=== PATIENT | female | born 1975 | race Caucasian/White ===

== ENCOUNTER 2017-01-23 21:07 | Inpatient (IN) | payer MEDICAID ==
--- NOTE | ~2017-01-23 | PN ---
Unit #: [id number] #: [id number] Patient: ALBERT LOPEZ [id number] [facility] [address] [place] [address] [id number] MR#: [id number] NAME: ALBERT LOPEZ ROOM: 12 Age: 41 Sex: F Admission Date: 01/24/2017 : 1975 Attending Physician: Thee Rooney M.D. Admitting Physician: Thee Rooney M.D. Primary Care Physician: Primary Care Physician Nika VALLES PROGRESS NOTES DATE 01/26/2017 DISCUSSION The patient is abed today. Her scheduled discharge yesterday had to be discontinued after the patient had voiced suicidal ideation prior to leaving the hospital. She is now on room lockout precautions to ensure her safety. She provides little in the way of useful information during today's attempted interview. Dictated by... Thee Rooney M.D. CB/gabriella TD: 01/26/2017 21:46 JOB #: [id number] [facility] PROGRESS NOTES Page 1 of 1 X Thee Rooney MD X PROGRESS NOTE
--- NOTE | ~2017-01-23 | PN ---
Unit #: [id number] #: [id number] Patient: ALBERT LOPEZ [id number] [facility] [address] [place] [address] [id number] MR#: [id number] NAME: ALBERT LOPEZ ROOM: 12 Age: 41 Sex: F Admission Date: 01/24/2017 : 1975 Attending Physician: Thee Rooney M.D. Admitting Physician: Thee Rooney M.D. Primary Care Physician: Primary Care Physician Nika VALLES PROGRESS NOTES DATE 01/29/2017 DISCUSSION The patient is gently but firmly confronted today regarding her failure to attend an on unit therapeutic activity. The patient states that she wishes to stay here for "drug rehab". I have explained to the patient that this facility does not provide that level of care and I have asked the patient's manager social work to see her regarding her post discharge options but have told the patient to expect a.m. discharge. She is currently denying suicidal ideation. Dictated by... Thee Rooney M.D. CB/dong TD: 01/30/2017 02:42 JOB #: [id number] [facility] PROGRESS NOTES Page 1 of 1 X Thee Rooney MD PROGRESS NOTE
--- NOTE | ~2017-01-23 | HP ---
Unit #: [id number] #: [id number] Patient: ALBERT LOPEZ [id number] [place] [address] [id number] MR#: [id number] NAME: ALBERT LOPEZ ROOM: P183 Age: 41 Sex: F Admission Date: 01/24/2017 : 1975 Attending Physician: Thee Rooney M.D. Admitting Physician: Thee Rooney M.D. Primary Care Physician: Primary Care Physician No HISTORY AND PHYSICAL HISTORY OF PRESENT ILLNESS Albert is a 41 year old admitted to [facility] because of her drug use. She smokes heroin. She also reports that she is depressed and wants to hurt herself. PAST MEDICAL HISTORY Long history of illicit substance abuse to include: 1. methamphetamine 2. COPD PAST SURGICAL HISTORY 1. Hysterectomy 2. section x1 ALLERGIES Keflex, penicillin, sulfa, latex. SOCIAL HISTORY Smokes greater than one pack per day. Drinks alcohol on occasion. Admits to history of illicit drug use to include smoking methamphetamine. FAMILY HISTORY Medically noncontributory. REVIEW OF SYSTEMS CONSTITUTIONAL: No fever or chills. HEENT: Denies any sore throat, ear pain or runny nose. CARDIOVASCULAR: Denies chest pain, irregular heart rhythm or palpitations. CHEST: Denies shortness of breath or cough. No hemoptysis. GASTROINTESTINAL: Denies nausea, vomiting, diarrhea or chronic constipation. ENDOCRINE: Denies history of increased thirst or urination. No recent significant weight loss or gain. GENITOURINARY: Denies dysuria, frequency, or hematuria. SKIN: Denies any rashes. HEMATOLOGIC: Denies history of increased bleeding or bruising. MUSCULOSKELETAL: Denies any hot, swollen joints. No generalized muscle pain. NEUROLOGIC: Denies problems with vision or speech. No frequent, severe headaches. No numbness, tingling or weakness in any extremities. Denies loss of bladder or bowel control. Unit #: [id number] #: [id number] Patient: ALBERT LOPEZ CURRENT MEDICATIONS 1. Nicotine patch 21 mg q day 2. Milk of Magnesia p.r.n. 3. Maalox p.r.n. 4. Tylenol p.r.n. PHYSICAL EXAMINATION GENERAL: Alert, appearing much much older than her stated age of 41, in no apparent distress. VITAL SIGNS: Blood pressure 136/60, heart rate 86, respirations 16, temperature 98.6. WEIGHT: 131 pounds. HEIGHT: 5'3". SKIN: Warm and dry without rash or lesion. HEENT: Normocephalic. TMs not viewed. Oral and nasal passages clear. Conjunctivae clear. Pupils equal, round and reactive to light and accommodation. Extraocular movements intact. NECK: Supple without lymphadenopathy or thyromegaly. HEART: Regular rate and rhythm without murmur. LUNGS: Clear. ABDOMEN: Soft, nontender. : Not done. EXTREMITIES: No evidence of cyanosis, clubbing or edema. Moves all extremities without focal deficit. NEUROLOGICAL: Grossly within normal limits. Cranial Nerves: II: Visual mcdaniel are intact. III, IV AND : Extraocular movements are intact. Pupils are equal, round and reactive to light. V: Facial sensation is grossly normal. VII: Facial movements and expression are normal. VIII: Auditory acuity grossly intact. IX, X: Uvula is midline. Phonation is normal. XI: Patient shrugs shoulders and turns head normally. XII: Tongue protrudes in the midline. Sensory and Motor Function: Sensory and motor sensation is grossly normal. Motor: moves all extremities well. Coordination: Gait is normal. Deep Tendon Reflexes: Intact. IMPRESSION Psychiatric admission RECOMMENDATIONS PSYCHIATRIC: Per psychiatrist. MEDICAL: I see no contraindications to participating in facility's activities. MEDICAL PROGNOSIS Good. MEDICAL CONDITION Stable. Dictated by... Carol Butterfield P.A.-C. for Viry Lutz M.D. Unit #: [id number] #: [id number] Patient: ALBERT LOPEZ JOCELYN/dong TD: 01/25/2017 02:33 JOB #: [id number] HISTORY AND PHYSICAL Page 1 of 1 X Carol Butterfield HISTORY AND PHYSICAL
--- NOTE | ~2017-01-23 | DS ---
Unit #: [id number] #: [id number] Patient: ALBERT LOPEZ [id number] [place] [address] [id number] MR#: [id number] NAME: ALBERT LOPEZ ROOM: [facility] Age: 41 Sex: F Admission Date: 01/24/2017 : 1975 Discharge Date: 01/25/2017 Attending Physician: Thee Rooney M.D. Primary Care Physician: Primary Care Physician No DISCHARGE SUMMARY REASON FOR ADMISSION The patient is a 41-year-old white female with a history of methamphetamine dependence, admitted complaining of depressed mood and psychosis related to her methamphetamine abuse. HOSPITAL COURSE The patient was admitted to the [address] [place] [address] and placed on suicide precautions. The patient reported only a 2-month history of abuse of methamphetamine. She had voiced some suicidal ideation because of the prominence of her substance abuse symptoms. She was transferred to the [address] [place] [address] unfortunately during her stay on the [address] [place] [address]. She participated to no significant degree within the therapeutic milieu. Further she denied that methamphetamine was an issue for her and demanded "mental health." This physician suggested the patient that her participation in programming would be a good way of starting her request for "mental health," but that initiation of psychotropic medications would not be undertaken given the ongoing affect that methamphetamine was heading on her mood and cognitive symptoms. With this, the patient demanded discharge from the hospital. She stated that she would not comply with any programming and denied suicidal ideation. It was not felt the patient at that point met criteria for involuntary hospitalization. As per her request, discharge was ordered. FINAL DIAGNOSES Methamphetamine use disorder; mood disorder, unspecified. DISPOSITION ON DISCHARGE The patient is discharged on no psychotropic or other medications. FOLLOWUP Followup will take place through the auspices of community mental health resources. PROGNOSIS The patient's prognosis is considered less than optimal. Dictated by... Thee Rooney M.D. MAKAYLA/maylin TD: 01/25/2017 20:34 Unit #: [id number] #: [id number] Patient: ALBERT LOPEZ JOB #: [id number] DISCHARGE SUMMARY Page 1 of 1 X Thee Rooney MD DISCHARGE SUMMARY
--- NOTE | ~2017-01-23 | DS ---
Unit #: [id number] #: [id number] Patient: ALBERT LOPEZ [id number] [facility] [address] [place] [address] [id number] MR#: [id number] NAME: ALBERT LOPEZ ROOM: [facility] Age: 41 Sex: F Admission Date: 01/24/2017 : 1975 Discharge Date: 01/31/2017 Attending Physician: Thee Rooney M.D. Primary Care Physician: Primary Care Physician No DISCHARGE SUMMARY ADDENDUM The patient was planned for discharge, but then began voicing positive suicidal ideation issues in the hospital. Accordingly, discharge was discontinued and the patient returned to the inpatient unit and placed on the [facility]. Because of her threats of suicide, IV precautions were ordered. The patient was calmer and more pleasant and cooperative on interactions with peers and staff. She did admit to abuse of methamphetamine finally during her stay in the hospital. The patient denied suicidal ideation when seen by this physician on 01/30/2017 and requested discharge to take place the following and it was so ordered. 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 DISPOSITION ON DISCHARGE The patient is discharged on the following medications; Zyprexa 10 mg at h.s. for psychosis, trazodone 100 mg at h.s. p.r.n. insomnia. DISCHARGE INSTRUCTIONS No dietary or physical restrictions were placed upon the patient at the time of discharge. FOLLOWUP Followup will take place through the auspices of community mental health resources in the [place], [place] area. PROGNOSIS The patient's prognosis is considered fair. Dictated by... Thee Rooney M.D. CB/maylin TD: 01/31/2017 04:06 JOB #: [id number] Unit #: [id number] #: [id number] Patient: ALBERT LOPEZ DISCHARGE SUMMARY Page 1 of 1 X Thee Rooney MD X DISCHARGE SUMMARY
--- NOTE | ~2017-01-23 | PN ---
Unit #: [id number] #: [id number] Patient: ALBERT LOPEZ [id number] [facility] [address] [place] [address] [id number] MR#: [id number] NAME: ALBERT LOPEZ ROOM: 12 Age: 41 Sex: F Admission Date: 01/24/2017 : 1975 Attending Physician: Thee Rooney M.D. Admitting Physician: Thee Rooney M.D. Primary Care Physician: Primary Care Physician Nika VALLES PROGRESS NOTES DATE 01/27/2017 DISCUSSION The patient continues to complain of her room lockout status. She reports to this physician that she plans "on dying of starvation" once she leaves the hospital. There is possibly some evidence of psychosis and I will add Zyprexa and hope not only of addressing the patient's psychosis but also her complaints of reduced appetite. Dictated by... Thee Rooney M.D. CB/gabriella TD: 01/27/2017 16:34 JOB #: [id number] [facility] PROGRESS NOTES Page 1 of 1 X Thee Rooney MD X PROGRESS NOTE
--- NOTE | ~2017-01-23 | PA ---
Unit #: [id number] #: [id number] Patient: ALBERT LOPEZ [id number] [place] [address] [id number] MR#: [id number] NAME: ALBERT LOPEZ ROOM: P132 Age: 41 Sex: F Admission Date: 01/24/2017 : 1975 Date of Assessment: 01/23/2017 Attending Physician: Thee Rooney M.D. Admitting Physician: Thee Rooney M.D. Primary Care Physician: Primary Care Physician No PSYCHIATRIC ASSESSMENT IDENTIFYING INFORMATION The patient is a 41-year-old white female admitted in transfer from [facility] where she had reported positive suicidal ideation with plan to overdose. CHIEF COMPLAINT "I can't get off the meth." INFORMANT Patient, reliability is fair. HISTORY OF PRESENT ILLNESS The patient is a 41-year-old white female admitted to the [address] [place] [address] Unit after she had presented to [facility] reporting positive suicidal ideation related to a history of methamphetamine abuse. The patient reports that she last used on the day of admission. The patient was reporting some increased paranoid thinking. She has never been in chemical dependence or psychiatric treatment in the past per her report. She as reporting positive suicidal ideation with plan to overdose, but today denies such thinking. She denies any psychotic symptoms but does exhibit some paranoia during today's interview. She denies recent changes in sleep or appetite. She denies abuse of psychoactive substances apart from methamphetamine which she states she uses by means of smoking. She does claim that in September she had a "mental breakdown" which has rendered her unable to work since. She has since applied for disability. PAST PSYCHIATRIC HISTORY As above. PAST MEDICAL HISTORY Noncontributory. MEDICATIONS None. ALLERGIES None. FAMILY HISTORY The patient reports no family history of psychiatric illness or substance abuse. SOCIAL HISTORY Unit #: [id number] #: [id number] Patient: ALBERT LOPEZ The patient lives with her boyfriend. She reports positive methamphetamine use. She denies use of other psychoactive substances and is a smoker. She is currently unemployed. MENTAL STATUS EXAMINATION Examination at this time reveals the patient to be a thin disheveled white female appearing significantly older than stated age. She is in no apparent physical distress at the time of examination. She is awake, alert, and oriented in all spheres. Her mood is mildly dysphoric, her affect constricted. Speech is generally well-coherent. There are no gross deficits in memory or cognition noted. Intelligence is judged to be in the average range based on fund of knowledge. The patient is cooperative throughout the interview. She is currently denying suicidal or homicidal ideation or psychotic features. Judgment and insight appear to be intact. ASSETS AND LIABILITIES The patient's assets: Motivation for change. Liabilities: Lack of resources. DIAGNOSTIC IMPRESSION 1. Methamphetamine use disorder. 2. Methamphetamine-induced depressive disorder. TREATMENT PLAN The patient remains hospitalized for safety and stabilization. We will transfer the patient to the [facility] or [address] [place] [address] Unit in order for her to pursue chemical dependence programming, and we will look to possible refer the patient for residential chemical dependence treatment. ESTIMATED LENGTH OF STAY 5 to 7 days. Dictated by... Thee Rooney M.D. MAKAYLA/pj TD: 01/24/2017 13:27 JOB #: [id number] PSYCHIATRIC ASSESSMENT Page 1 of 1 X Thee Rooney MD X PSYCHIATRIC ASSESSMENT
--- NOTE | ~2017-01-23 | PN ---
Unit #: [id number] #: [id number] Patient: ALBERT LOPEZ [id number] [facility] [address] [place] [address] [id number] I MR#: [id number] NAME: ALBERT LOPEZ ROOM: 12 Age: 41 Sex: F Admission Date: 01/24/2017 : 1975 Attending Physician: Thee Rooney M.D. Admitting Physician: Thee Rooney M.D. Primary Care Physician: Primary Care Physician Nika VALLES PROGRESS NOTES DATE OF SERVICE 01/26/2017 DISCUSSION The patient is in somewhat brighter spirits today and is reporting no suicidal ideation. We continue current treatment and we will discontinue room lock out precautions at this time. The patient continues to express concerns regarding her current homeless status and I will ask the dialysis social worker to see her regarding this. Dictated by... Thee Rooney M.D. CB/dong TD: 01/29/2017 21:47 JOB #: [id number] [facility] PROGRESS NOTES Page 1 of 1 X Thee Rooney MD PROGRESS NOTE
== END 2017-01-31 10:00 | disposition home or self-care (01) | DRG 897 ==
LOC: P1E 01-24 04:39 → P1S 01-24 04:39 → P1E 01-24 18:21 → P1S 01-25 17:43
DX: F15.14 Other stimulant abuse with stimulant-induced mood disorder (principal); R45.851 Suicidal ideations; F17.210 Nicotine dependence, cigarettes, uncomplicated; J44.9 Chronic obstructive pulmonary disease, unspecified; Z88.2 Allergy status to sulfonamides; Z88.0 Allergy status to penicillin; Z88.8 Allergy status to other drugs, medicaments and biological substances; Z91.040 Latex allergy status; F15.121 Other stimulant abuse with intoxication delirium; F29 Unspecified psychosis not due to a substance or known physiological condition; F34.1 Dysthymic disorder
CPT/HCPCS: J3486